=== PATIENT | female | born 1965 | race Caucasian/White ===

== ENCOUNTER → 2025-07-23 | Outpatient (REF) | payer SELFPAY ==
[2025-07-23 09:03] LABS: Hematocrit 25.3 % (37-47); Hemoglobin 7.5 g/dL (12.0-15.0); Mean Corp Hgb Conc 29.6 g/dL (32-36); Mean Corpuscular Volume 101.6 fL (81-99); Mean Platelet Vol. 8.6 fl (6.2-12.0); POSITIVE MORPHOLOGY YES; Platelet Count 606 K/mm3 (150-450); RBC Distribution Width CV 18.9 % (11.6-14.6); RBC Distribution Width SD 69.6 fl (35.1-43.9); Red Blood Count 2.49 M/mm3 (4.2-5.4); White Blood Count 11.0 K/mm3 (4.4-11.0)
[2025-07-23 09:11] LABS: Scan Indicated on CBC? Y/N YES- FLAGS NOTED
[2025-07-23 09:31] LABS: Anion Gap 8 (5-15); BUN 29 mg/dL (4-19); BUN/Creat Ratio 52.7 RATIO (10-20); Calcium,Total 10.8 mg/dL (7.6-11.0); Carbon Dioxide 41.3 mmol/L (21.0-32.0); Chloride 89 mmol/L (98-108); Glucose 120 mg/dL (70-99); Potassium 3.4 mmol/L (3.3-5.1)
== END ==
LOC: OLS.SANC 05:00
DX: I10 Essential (primary) hypertension (principal); D72.819 Decreased white blood cell count, unspecified
CPT/HCPCS: 36415; 80048; 85027

== ENCOUNTER → 2025-07-27 05:00 | Outpatient (REF) | payer MEDICAID, SELFPAY ==
[2025-07-29 04:07] LABS: HIV-1 RNA by PCR, Quant. < 20 copies/mL (.)
== END ==
LOC: OLS.SANC 05:00
DX: Z21 Asymptomatic human immunodeficiency virus [HIV] infection status (principal)
CPT/HCPCS: 36415; 87536